=== PATIENT | male | born 1975 | race Caucasian/White ===

== ENCOUNTER 2018-06-07 15:46 | Outpatient (CLI) ==
[2016-03-20 20:39] VITALS: BMI 32.1
--- NOTE | 2018-06-07 16:12 | DI ---
Exam: Two views of the chest. Comparison: 03/20/2012. Reason for exam: Pain. FINDINGS: No pneumothorax, pleural effusion, or focal consolidation. The cardiac silhouette is not enlarged. The imaged osseous structures appear grossly unremarkable without acute fracture. Impression: No acute cardiopulmonary process
== END 2018-06-07 15:47 | disposition home or self-care (01) ==
LOC: CAR 15:46
PROVIDERS: ATTEND Family Medicine
DX: R07.9 Chest pain, unspecified (principal)
CPT/HCPCS: 36415; 82550; 82553; 84484; 93005; 93010

== ENCOUNTER 2018-09-22 09:35 | Outpatient (CLI) | payer OTHER ==
[2016-03-20 20:39] VITALS: BMI 32.1
--- NOTE | 2018-09-22 10:09 | CT ---
EXAM: CT Abdomen without contrast. CT Pelvis without contrast. HISTORY: Generalized abdominal pain. COMPARISON: 08/31/2016. TECHNIQUE: Multiple axial images of the abdomen and pelvis were obtained without intravenous contras t. Images were reformatted in the sagittal and coronal plane. FINDINGS: Please note that evaluation of the abdominal and pelvic structures is limited due to lack of intravenous contrast. No acute abnormality identified in the lung bases. No acute osseous abnormality identified. The liver, gallbladder, pancreas, spleen, adrenal glands, and kidneys demonstrate normal contour. No calcified renal stones or hydronephrosis detected. The bowel is normal in course and caliber without evidence for obstruction or inflammatory process. The appendix is normal. Colonic diverticulosis is present. Urinary bladder is unremarkable. There is no evidence for ventral abdominal wall or inguinal hernia. No free fluid or free air identified. IMPRESSION: No acute abnormality within the abdomen or pelvis.
== END 2018-09-22 09:36 | disposition home or self-care (01) ==
LOC: RAD 09:35
PROVIDERS: ATTEND Surgery
DX: R10.9 Unspecified abdominal pain (principal)